=== PATIENT | male | born 1985 | race Caucasian/White ===

== ENCOUNTER → 2016-05-04 | Outpatient (CLI) | payer BC ==
[~2016-05-04] MED LIST: ALBU1AER9; CHERATUSSIN AC; GLC850 PO; LEVO-366 PO; MCR25 PO
[2016-05-04 14:21] LABS: BASO % 0.3 %; BASO ABS # 0.02 K/uL (0-0.2); COMPLETE YES; EOS % 1.3 %; HEMATOCRIT 47.9 % (42-52); IG% 0.1 %; LYMPH % 28.3 %; LYMPH ABS # 2.19 K/uL (1.2-3.4); MEAN CELL VOLUME 83.7 fL (80-100); MEAN CORPUSCULAR HEMOGLOBIN 29.2 pg (25-34); MEAN CORPUSCULAR HGB CONC 34.9 g/dl (32-36); MEAN PLATELET VOLUME 10.4 fL (7.4-10.4); MONO % 5.7 %; NEUT % 64.3 %; PLATELET COUNT 141 K/uL (130-400); RED BLOOD COUNT 5.72 M/uL (4.7-6.1); WHITE BLOOD COUNT 7.74 K/uL (4.8-10.8)
[2016-05-04 14:27] LABS: ALT/SGPT 83 U/L (12-78); BLOOD UREA NITROGEN 17 mg/dl (7-18); BUN/CREATININE RATIO 21.4 (10-20); CALCIUM 9.7 mg/dl (8.5-10.1); CARBON DIOXIDE 25 mmol/L (21-32); CHLORIDE 101 mmol/L (98-107); CHOLESTEROL 124 mg/dl (0-200); GLUCOSE 266 mg/dl (70-99); POTASSIUM 4.1 mmol/L (3.5-5.1); SODIUM 135 mmol/L (136-145)
[2016-05-04 14:30] LABS: ALB/GLOB RATIO 1.3 (0.9-2); ALKALINE PHOSPHATASE 90 U/L (45-117); AST/SGOT 22 U/L (15-37); CHOLESTEROL/HDL RATIO 4.4; HDL CHOLESTEROL 28 mg/dl; LDL CHOLESTEROL CALCULATED 40 mg/dl; TRIGLYCERIDES 280 mg/dl (0-150); VERY LOW DENSITY LIPOPROT CALC 56 mg/dl
[2016-05-05 06:53] LABS: ESTIMATED AVERAGE GLUCOSE 243 mg/dl; HA1C FLAG Normal (Normal)
== END | disposition home or self-care (01) ==
LOC: C.LABSPEC 13:54
PROVIDERS: ATTEND Family Medicine
DX: E11.9 Type 2 diabetes mellitus without complications (principal); I10 Essential (primary) hypertension; E78.2 Mixed hyperlipidemia

== ENCOUNTER → 2016-09-24 | Outpatient (CLI) | payer BC ==
[2016-09-24 18:21] LABS: BASO % 0.3 %; BASO ABS # 0.03 K/uL (0-0.2); COMPLETE YES; EOS % 1.4 %; HEMATOCRIT 50.1 % (42-52); IG% 0.3 %; LYMPH % 33.2 %; LYMPH ABS # 3.32 K/uL (1.2-3.4); MEAN CELL VOLUME 86.1 fL (80-100); MEAN CORPUSCULAR HEMOGLOBIN 29.7 pg (25-34); MEAN CORPUSCULAR HGB CONC 34.5 g/dl (32-36); MEAN PLATELET VOLUME 9.5 fL (7.4-10.4); MONO % 4.6 %; NEUT % 60.2 %; PLATELET COUNT 166 K/uL (130-400); RED BLOOD COUNT 5.82 M/uL (4.7-6.1); WHITE BLOOD COUNT 9.99 K/uL (4.8-10.8)
[2016-09-24 18:33] LABS: ALT/SGPT 89 U/L (12-78); AST/SGOT 27 U/L (15-37); BLOOD UREA NITROGEN 18 mg/dl (7-18); BUN/CREATININE RATIO 25.7 (10-20); CALCIUM 10.3 mg/dl (8.5-10.1); CARBON DIOXIDE 25 mmol/L (21-32); CHLORIDE 108 mmol/L (98-107); CREATININE 0.71 mg/dl (0.60-1.40); GLUCOSE 139 mg/dl (70-99); POTASSIUM 4.1 mmol/L (3.5-5.1); SODIUM 142 mmol/L (136-145)
[2016-09-24 18:36] LABS: ALB/GLOB RATIO 1.2 (0.9-2); ALKALINE PHOSPHATASE 58 U/L (45-117); CHOLESTEROL 114 mg/dl (0-200); CHOLESTEROL/HDL RATIO 3.9; HDL CHOLESTEROL 29 mg/dl; LDL CHOLESTEROL CALCULATED 61 mg/dl; TRIGLYCERIDES 121 mg/dl (0-150); VERY LOW DENSITY LIPOPROT CALC 24 mg/dl
[2016-09-25 06:37] LABS: ESTIMATED AVERAGE GLUCOSE 171 mg/dl; HA1C FLAG Normal (Normal)
== END | disposition home or self-care (01) ==
LOC: C.LABSPEC 17:51
PROVIDERS: ATTEND Family Medicine
DX: E11.9 Type 2 diabetes mellitus without complications (principal); E78.2 Mixed hyperlipidemia; I10 Essential (primary) hypertension

== ENCOUNTER → 2017-09-30 | Outpatient (CLI) | payer BC | END | disposition home or self-care (01) | LOC: C.LABSPEC 17:07 | PROVIDERS: ATTEND Podiatrist Foot & Ankle Surgery | DX: L97.509 Non-pressure chronic ulcer of other part of unspecified foot with unspecified severity (principal) ==

== ENCOUNTER → 2017-10-04 | Outpatient (CLI) | payer BC ==
[2017-10-04 19:33] LABS: BLOOD UREA NITROGEN 15 mg/dl (7-18); CREATININE 0.91 mg/dl (0.60-1.40)
--- NOTE | 2017-10-04 22:27 | DIAGNOSTIC IMAGING REPORT ---
MRI OF THE LEFT FOOT WITHOUT CONTRAST CLINICAL HISTORY: Nonhealing wound. Evaluate for osteomyelitis. COMPARISON STUDY: No previous studies for comparison. TECHNIQUE: Utilizing a 1.5 Ashlyn magnet and dedicated coil, multiplanar, multi echo imaging of the left foot was performed without intravenous contrast. FINDINGS: A marker was placed on the skin at site of wound which overlies the plantar aspects of the left fourth and fifth metatarsophalangeal joints. There is minimal subcutaneous signal abnormality. Note is made of a tiny fluid collection along the plantar aspect of the left fifth metatarsal head. The collection measures 1.1 x 0.8 x 0.2 cm. There is no evidence for osteomyelitis of the left foot. No marrow edema or marrow replacement is present. Tarsometatarsal joints are intact. No mass is identified on this unenhanced examination. No erosions are identified. IMPRESSION: 1. No evidence of osteomyelitis within the left foot. No marrow edema. 2. Left foot wound with a tiny 1.1 x 0.8 x 0.2 cm fluid collection along the plantar aspect of the left fifth metatarsal head. Sterility cannot be assessed by MRI and a tiny abscess cannot be excluded. Electronically signed by: Abhishek May M.D. 10/04/2017 10:26 PM Dictated Date/Time: 10/04/2017 10:14 PM
== END | disposition home or self-care (01) ==
LOC: C.MRI 18:55
PROVIDERS: ATTEND Podiatrist Foot & Ankle Surgery
DX: Z01.818 Encounter for other preprocedural examination (principal); L97.521 Non-pressure chronic ulcer of other part of left foot limited to breakdown of skin; L97.522 Non-pressure chronic ulcer of other part of left foot with fat layer exposed; G60.8 Other hereditary and idiopathic neuropathies; R20.2 Paresthesia of skin